=== PATIENT | male | born 1980 | race Caucasian/White ===

== ENCOUNTER 2017-03-14 21:50 | Emergency (ER) | payer SELFPAY ==
[2017-03-14 21:55] VITALS: BP 177/109; PULSE 68; RESP 14; TEMP 98.5; O2SAT 97
== END 2017-03-14 22:38 | disposition left against medical advice (07) ==
LOC: NED 21:50
DX: Z53.21 Procedure and treatment not carried out due to patient leaving prior to being seen by health care provider (principal)
CPT/HCPCS: 99281

== ENCOUNTER 2017-11-21 16:52 | Emergency (ER) | payer OTHER ==
[~2017-11-21] VITALS: Ht 167.6 cm; Wt 68.0 kg
[2017-11-21 16:53] VITALS: BP 161/101; PULSE 78; RESP 16; TEMP 99.4; O2SAT 99
[2017-11-21] MEDS ORDERED: SODIUM CHLORIDE 0.9% FLUSH 10 ML FLUSH IVF PRN (17:30)
[2017-11-21] MEDS ORDERED: ASPIRIN 325 MG TAB PO ONE (17:30)
--- NOTE | 2017-11-21 17:34 | PD ---
HPI Chief Complaint: Chest Pain Time Seen by Provider: 17:06 Travel History International Travel<30 days: No Contact w/Intl Traveler<30days: No Traveled to known affect area: No History of Present Illness HPI The patient has had intermittent chest pain for the last several months. It comes and lasts just a few seconds before resolving spontaneously. Location is retrosternal. There is no radiation. It Does not seem to be related to exertion or with inspiration. He denies shortness of breath. He's had no fever or cough. He reports history of atrial fibrillation with RVR however does not take rate control agents or anticoagulants and has not used any for years PFSH Past Medical History Anxiety: Yes Depression: Yes Heart Rhythm Problems: Yes Cancer: No Cardiovascular Problems: Yes (a-fib) Diminished Hearing: No Endocrine: No Genitourinary: No Immune Disorder: No Musculoskeletal: No Neurologic: No Psychiatric: Yes (PTSD, EXPLOSIVE DISORDER) Reproductive: No Respiratory: No Immunizations Current: Yes Past Surgical History Abdominal Surgery: No Cardiac Surgery: No Ear Surgery: No Endocrine Surgery: No Eye Surgery: No Genitourinary Surgery: No Gynecologic Surgery: No Oral Surgery: Yes (JAW REPAIR, dentures) Thoracic Surgery: No Other Surgery: Yes (JAW WIRED) Social History Alcohol Use: Yes (WEEKENDS) Tobacco Use: Yes (1 PPD) Substance Use: No Allergies-Medications (Allergen,Severity, Reaction): Coded Allergies: No Known Allergies (Verified , 07/24/14) Reported Meds & Prescriptions Reported Meds & Active Scripts Active No Active Prescriptions or Reported Medications Physical Exam Narrative GENERAL: Well-nourished well-developed 37-year-old male no acute distress SKIN: Warm and dry. HEAD: Atraumatic. Normocephalic. EYES: Pupils equal and round. No scleral icterus. No injection or drainage. ENT: No nasal bleeding or discharge. Mucous membranes pink and moist. NECK: Trachea midline. No JVD. CARDIOVASCULAR: Regular rate and rhythm. No significant chest wall tenderness to palpation. RESPIRATORY: No accessory muscle use. Clear to auscultation. Breath sounds equal bilaterally. GASTROINTESTINAL: Abdomen soft, non-tender, nondistended. Hepatic and splenic margins not palpable. MUSCULOSKELETAL: Extremities without clubbing, cyanosis, or edema. No obvious deformities. NEUROLOGICAL: Awake and alert. No obvious cranial nerve deficits. Motor grossly within normal limits. Five out of 5 muscle strength in the arms and legs. Normal speech. PSYCHIATRIC: Appropriate mood and affect; insight and judgment normal. Data Data Last Documented VS Vital Signs Date Time Temp Pulse Resp B/P (MAP) Pulse Ox O2 Delivery O2 Flow Rate FiO2 11/21/17 17:38 18 98 Room Air 11/21/17 17:15 72 11/21/17 16:53 99.4 Orders Orders Electrocardiogram (11/21/17 17:21) Basic Metabolic Panel (Bmp) (11/21/17 17:21) Ckmb (Isoenzyme) Profile (11/21/17:) Complete Blood Count With Diff (11/21/17:) D-Dimer (11/21/17:) Magnesium (Mg) (11/21/17:) Troponin I (11/21/17 17:) Chest, Single Ap (11/21/17 17:21) Ecg Monitoring (11/21/17:) Iv Access Insert/Monitor (11/21/17:) Oximetry (11/21/17:) Oxygen Administration (11/21/17 17:) Aspirin (Aspirin) (11/21/17 17:30) Sodium Chloride 0.9% Flush (Ns Flush) (11/21/17 17:30) Labs Laboratory Tests Test 11/21/17 17:27 White Blood Count 11.0 TH/MM3 Red Blood Count 4.91 MIL/MM3 Hemoglobin 15.9 GM/DL Hematocrit 45.4 % Mean Corpuscular Volume 92.6 FL Mean Corpuscular Hemoglobin 32.4 PG Mean Corpuscular Hemoglobin Concent 35.0 % Red Cell Distribution Width 13.6 % Platelet Count 200 TH/MM3 Mean Platelet Volume 9.1 FL Neutrophils (%) (Auto) 52.7 % Lymphocytes (%) (Auto) 37.1 % Monocytes (%) (Auto) 5.6 % Eosinophils (%) (Auto) 3.8 % Basophils (%) (Auto) 0.8 % Neutrophils # (Auto) 5.8 TH/MM3 Lymphocytes # (Auto) 4.1 TH/MM3 Monocytes # (Auto) 0.6 TH/MM3 Eosinophils # (Auto) 0.4 TH/MM3 Basophils # (Auto) 0.1 TH/MM3 CBC Comment DIFF FINAL Differential Comment D-Dimer Quantitative (PE/DVT) 0.21 MG/L FEU Blood Urea Nitrogen 12 MG/DL Creatinine 0.89 MG/DL Random Glucose 113 MG/DL Calcium Level 8.8 MG/DL Magnesium Level 2.5 MG/DL Sodium Level 141 MEQ/L Potassium Level 3.6 MEQ/L Chloride Level 108 MEQ/L Carbon Dioxide Level 24.8 MEQ/L Anion Gap 8 MEQ/L Estimat Glomerular Filtration Rate 96 ML/MIN Total Creatine Kinase 86 U/L Troponin I LESS THAN 0.02 NG/ML MDM Medical Decision Making Medical Screen Exam Complete: Yes Emergency Medical Condition: Yes Medical Record Reviewed: Yes Differential Diagnosis NSTEMI, unstable angina, coronary vasospasm, PE, PTX, aortic dissection, pericarditis, myocarditis, endocarditis, PNA, esophageal disease, aneurysm, musculoskeletal etiologies, anxiety, cocaine/sympathomimetic abuse Narrative Course CBC & BMP Diagram 11/21/17 17:27 Calcium Level 8.8, Magnesium Level 2.5 EKG shows a sinus rhythm, rate 64, normal axis intervals Last 24 hours Impressions Chest X-Ray 11/21/17 1721 Signed Impressions: Service Date/Time: November 17:24 - CONCLUSION: Normal examination. Sylvester Burton MD ddimer 0.21 The patient is resting comfortably and feels better, is alert and in no distress. The patients results and examination findings were discussed. The repeat examination is unremarkable and benign. The history, exam, diagnostic testing, and current condition do not suggest any significant pathology to warrant further testing, continued ED treatment, admission, or surgical evaluation at this point. The vital signs have been stable. The patient does not have uncontrollable pain, intractable vomiting, or other significant symptoms. The patient's condition is stable and appropriate for discharge. The patient will pursue further outpatient evaluation with a primary care physician or other designated or consulting physician as indicated in the discharge instructions. The patient expressed understanding and was agreeable with this plan. Diagnosis Primary Impression: Chest pain Qualified Codes: R07.89 - Other chest pain Med/Other Pt SpecificInfo: Prescription(s) given Scripts No Active Prescriptions or Reported Meds Disposition: 01 DISCHARGE HOME Condition: Stable Keith Zamorano MD Nov 21, 2017 17:34
--- NOTE | 2017-11-21 17:35 | RADRPT ---
EXAM DATE/TIME: 11/21/2017 17:24 [facility] COMPARISON: No previous studies available for comparison. INDICATIONS : Chest pain MEDICAL HISTORY : A-fib SURGICAL HISTORY : None. ENCOUNTER: Initial ACUITY: 4 - 6 months PAIN SCORE: 0/10 LOCATION: Bilateral chest FINDINGS: A single view of the chest demonstrates the lungs to be symmetrically aerated without evidence of mas s, infiltrate or effusion. The cardiomediastinal contours are unremarkable. Osseous structures are intact. CONCLUSION: Normal examination. Sylvester Burton MD on November 21, 2017 at 17:32 Board Certified Radiologist. This report was verified electronically.
[2017-11-21 17:38] VITALS: RESP 18; O2SAT 98
[2017-11-21 18:01] LABS: AUTOMATED NEUTROPHIL # 5.8 TH/MM3 (1.8-7.7); BASOPHIL # 0.1 TH/MM3 (0-0.2); BASOPHIL % 0.8 % (0.0-2.0); EOSINOPHIL # 0.4 TH/MM3 (0-0.4); EOSINOPHIL % 3.8 % (0.0-4.0); HEMATOCRIT 45.4 % (39.0-51.0); HEMOGLOBIN 15.9 GM/DL (13.0-17.0); LYMPH % 37.1 % (9.0-44.0); LYMPHOCYTE # 4.1 TH/MM3 (1.0-4.8); MEAN CELL VOLUME 92.6 FL (80.0-100.0); MEAN CORPUSCULAR HEMOGLOBIN 32.4 PG (27.0-34.0); MEAN PLATELET VOLUME 9.1 FL (7.0-11.0); MONO % 5.6 % (0.0-8.0); MONOCYTE # 0.6 TH/MM3 (0-0.9); NEUT % 52.7 % (16.0-70.0); PLATELET COUNT 200 TH/MM3 (150-450); RED BLOOD COUNT 4.91 MIL/MM3 (4.50-5.90); RED CELL DISTRIBUTION WIDTH 13.6 % (11.6-17.2)
[2017-11-21 18:12] LABS: BICARBONATE 24.8 MEQ/L (21.0-32.0); BLOOD UREA NITROGEN 12 MG/DL (7-18); CALCIUM 8.8 MG/DL (8.5-10.1); CHLORIDE 108 MEQ/L (98-107); CREATININE 0.89 MG/DL (0.60-1.30); GLOMERULAR FILTRATION RATE 96 ML/MIN (>89); GLUCOSE,RANDOM 113 MG/DL (74-106); MAGNESIUM 2.5 MG/DL (1.5-2.5); SODIUM (NA) 141 MEQ/L (136-145)
[2017-11-21 18:15] LABS: TROPONIN I LESS THAN 0.02 NG/ML (0.02-0.05)
--- NOTE | 2017-11-21 19:36 | EKG ---
Date Performed: 11/21/2017 Time Performed: 17:09:31 PTAGE: 37 years EKG: Sinus rhythm WITH SHORT [place] INTERVAL BORDERLINE ECG No significant change from prior electrocardiogram. PREVIOUS TRACING : 03/12/2013 19.36 DOCTOR: Sandeep Quevedo Interpretating Date/Time 11/21/2017 19:35:19
== END 2017-11-21 18:51 | disposition home or self-care (01) ==
LOC: NEPC 16:52
DX: R07.9 Chest pain, unspecified (principal); I48.91 Unspecified atrial fibrillation; R94.31 Abnormal electrocardiogram [ECG] [EKG]; Z72.0 Tobacco use
CPT/HCPCS: 71045; 80048; 82550; 83735; 84484; 85025; 85379; 93005